=== PATIENT | female | born 1950 | race Caucasian/White ===

== ENCOUNTER 2016-11-22 20:12 | Emergency (ER) | payer OTHER | END 2016-11-23 01:59 | disposition home or self-care (01) | LOC: ER1 20:12 | DX: N39.0 Urinary tract infection, site not specified (principal); M25.552 Pain in left hip; I10 Essential (primary) hypertension; I69.351 Hemiplegia and hemiparesis following cerebral infarction affecting right dominant side; Z88.0 Allergy status to penicillin; Z88.2 Allergy status to sulfonamides; Z88.8 Allergy status to other drugs, medicaments and biological substances; Z79.01 Long term (current) use of anticoagulants; Z79.899 Other long term (current) drug therapy; Z95.1 Presence of aortocoronary bypass graft | CPT/HCPCS: 73502; 81001; 87077; 87086; 87186; 99284 ==